=== PATIENT | male | born 1960 | race Caucasian/White ===

== ENCOUNTER 2021-01-20 12:27 | Inpatient (IN) | payer OTHER ==
[2021-01-20 13:49] VITALS: BMI 32.1
[2021-01-20] MEDS ORDERED: MAGNESIUM HYDROX 2400MG/30ML ORAL SUSPENSION 30 ML CUP PO PRN (14:03)
[2021-01-20] MEDS ORDERED: METHADONE HCL 10 MG TABLET (FOR DETOX USE ONLY) PO ONE (14:03)
[2021-01-20] MEDS ORDERED: chlordiazePOXIDE HCL 25 MG CAPSULE PO PRN (14:03)
[2021-01-20] MEDS ORDERED: MAG HYDROX/AL HYDROX/SIMETH 30 ML UNIT-DOSE CUP PO PRN (14:03)
[2021-01-20] MEDS ORDERED: ACETAMINOPHEN 325 MG TABLET (FP) PO PRN (14:03)
[2021-01-20] MEDS ORDERED: MAGNESIUM CITRATE 300 ML BOTTLE PO PRN (14:03)
[2021-01-20] MEDS ORDERED: BISMUTH SUBSALICYLATE 524 MG/30 ML UD PO PRN (14:03)
[2021-01-20] MEDS ORDERED: METHOCARBAMOL 500 MG TABLET PO PRN (14:03)
[2021-01-20] MEDS ORDERED: cloNIDine HCL 0.1 MG TABLET PO PRN (14:03)
[2021-01-20] MEDS ORDERED: ONDANSETRON *ODT* 4 MG TABLET SL PRN (14:03)
[2021-01-20] MEDS ORDERED: IBUPROFEN 400 MG TABLET (FP) PO PRN (14:03)
[2021-01-20] MEDS ORDERED: MENTHOL/PHENOL 1 EACH UD MM PRN (14:03)
[2021-01-20 16:18] LABS: HEMATOCRIT 44.6 % (35.4-49); HEMOGLOBIN 15.2 GM/dL (11.7-16.9); MCH 31.4 pg (25.7-33.7); MEAN CELL VOLUME 92.2 fl (80-96); MEAN PLT VOLUME 8.6 fl (7.5-11.1); PLATELET COUNT 263 K/MM3 (134-434); RBC 4.84 M/mm3 (4.00-5.60); RDW 15.1 % (11.9-15.9); WHITE BLOOD COUNT 7.5 K/mm3 (4.0-10.0)
[2021-01-20 16:53] LABS: ALBUMIN 3.8 g/dl (3.4-5.0); BLOOD UREA NITROGEN 11.8 mg/dL (7-18); CALCIUM 8.7 mg/dL (8.5-10.1)
[2021-01-20 16:57] LABS: CREATININE 0.9 mg/dL (0.55-1.3)
[2021-01-20 16:58] LABS: TOT PROT 7.8 g/dl (6.4-8.2)
[2021-01-20 16:59] LABS: BILIRUBIN,TOTAL 1.2 mg/dL (0.2-1)
[2021-01-20] MEDS: chlordiazePOXIDE HCL 25 MG CAPSULE PO SCH ×3 (18:20→22:38)
[2021-01-20] MEDS: hydrOXYzine PAMOATE 25 MG CAPSULE (FP) PO SCH ×2 (18:30→23:17)
[2021-01-20] MEDS ORDERED: MELATONIN 5 MG TABLETS PO SCH (22:00)
[2021-01-20] MEDS: THIAMINE HCL 100 MG TABLET (FP) PO SCH (22:38)
[2021-01-21] MEDS: chlordiazePOXIDE HCL 25 MG CAPSULE PO SCH ×4 (05:17→22:38)
[2021-01-21] MEDS: hydrOXYzine PAMOATE 25 MG CAPSULE (FP) PO SCH ×5 (05:17→22:39)
[2021-01-21] MEDS ORDERED: METHADONE HCL 5 MG TABLET (FOR DETOX USE ONLY) ONE (08:52)
[2021-01-21] MEDS ORDERED: METHADONE HCL 10 MG TABLET (FOR DETOX USE ONLY) ONE (08:52)
[2021-01-21] MEDS ORDERED: MELATONIN 5 MG TABLETS PO PRN (09:22)
[2021-01-21] MEDS ORDERED: METHADONE (DETOX) 20 MG, METHADONE (DETOX) 5 MG PO ONE (10:00)
[2021-01-21] MEDS: PRENATAL VITAMINS W/ FOLIC ACID TABLET (FP) PO SCH (10:26)
[2021-01-21] MEDS: METOPROLOL TARTRATE 50 MG TABLET (FP) PO SCH (11:54)
[2021-01-21] MEDS: FLUTICASONE PROP 0.05% 16 GM NASAL SPRAY NS SCH ×2 (11:55→22:38)
[2021-01-21] MEDS: THIAMINE HCL 100 MG TABLET (FP) PO SCH (22:38)
[2021-01-22] MEDS: ACETAMINOPHEN 325 MG TABLET (FP) PO PRN (01:13)
[2021-01-22] MEDS: hydrOXYzine PAMOATE 25 MG CAPSULE (FP) PO SCH ×5 (05:13→22:17)
[2021-01-22] MEDS: chlordiazePOXIDE HCL 25 MG CAPSULE PO SCH ×4 (05:13→22:16)
[2021-01-22] MEDS ORDERED: METHADONE HCL 10 MG TABLET (FOR DETOX USE ONLY) PO ONE (10:00)
[2021-01-22] MEDS: PRENATAL VITAMINS W/ FOLIC ACID TABLET (FP) PO SCH (10:11)
[2021-01-22] MEDS: METOPROLOL TARTRATE 50 MG TABLET (FP) PO SCH (10:12)
[2021-01-22] MEDS: FLUTICASONE PROP 0.05% 16 GM NASAL SPRAY NS SCH ×2 (10:13→22:16)
[2021-01-22] MEDS: THIAMINE HCL 100 MG TABLET (FP) PO SCH (22:15)
[2021-01-23] MEDS ORDERED: chlordiazePOXIDE HCL 10 MG CAPSULE PO PRN
[2021-01-23] MEDS: chlordiazePOXIDE HCL 10 MG CAPSULE PO SCH ×4 (05:15→22:04)
[2021-01-23] MEDS: hydrOXYzine PAMOATE 25 MG CAPSULE (FP) PO SCH ×5 (05:16→22:05)
[2021-01-23] MEDS ORDERED: METHADONE HCL 5 MG TABLET (FOR DETOX USE ONLY) ONE (09:31)
[2021-01-23] MEDS ORDERED: METHADONE HCL 10 MG TABLET (FOR DETOX USE ONLY) ONE (09:32)
[2021-01-23] MEDS ORDERED: METHADONE (DETOX) 10 MG, METHADONE (DETOX) 5 MG PO ONE (10:00)
[2021-01-23] MEDS: METOPROLOL TARTRATE 50 MG TABLET (FP) PO SCH (10:41)
[2021-01-23] MEDS: FLUTICASONE PROP 0.05% 16 GM NASAL SPRAY NS SCH ×2 (10:41→22:05)
[2021-01-23] MEDS: PRENATAL VITAMINS W/ FOLIC ACID TABLET (FP) PO SCH (10:41)
[2021-01-23] MEDS ORDERED: COLLOIDAL OATMEAL 1 BAR EACH TP PRN (13:12)
[2021-01-23] MEDS: THIAMINE HCL 100 MG TABLET (FP) PO SCH (22:04)
[2021-01-24] MEDS: chlordiazePOXIDE HCL 10 MG CAPSULE PO SCH ×2 (05:20→17:54)
[2021-01-24] MEDS: hydrOXYzine PAMOATE 25 MG CAPSULE (FP) PO SCH ×5 (05:20→22:50)
[2021-01-24] MEDS ORDERED: METHADONE HCL 10 MG TABLET (FOR DETOX USE ONLY) PO ONE (10:00)
[2021-01-24] MEDS: PRENATAL VITAMINS W/ FOLIC ACID TABLET (FP) PO SCH (10:53)
[2021-01-24] MEDS: FLUTICASONE PROP 0.05% 16 GM NASAL SPRAY NS SCH ×2 (10:53→22:50)
[2021-01-24] MEDS: METOPROLOL TARTRATE 50 MG TABLET (FP) PO SCH (10:53)
[2021-01-24] MEDS: ACETAMINOPHEN 325 MG TABLET (FP) PO PRN (11:36)
[2021-01-24] MEDS: THIAMINE HCL 100 MG TABLET (FP) PO SCH (22:50)
[2021-01-25] MEDS ORDERED: chlordiazePOXIDE HCL 10 MG CAPSULE PO ONE (05:00)
[2021-01-25] MEDS ORDERED: METHADONE HCL 5 MG TABLET (FOR DETOX USE ONLY) PO ONE (06:00)
[2021-01-25] MEDS: hydrOXYzine PAMOATE 25 MG CAPSULE (FP) PO SCH ×2 (06:12→10:19)
[2021-01-25 07:35] VITALS: TEMP 97.7
[2021-01-25 09:42] VITALS: BP 118/69; PULSE 67
[2021-01-25] MEDS: METOPROLOL TARTRATE 50 MG TABLET (FP) PO SCH (10:19)
[2021-01-25] MEDS: PRENATAL VITAMINS W/ FOLIC ACID TABLET (FP) PO SCH (10:19)
[2021-01-25] MEDS: FLUTICASONE PROP 0.05% 16 GM NASAL SPRAY NS SCH (10:20)
== END 2021-01-25 12:39 | disposition home or self-care (01) | DRG 773 ==
LOC: YASAS 12:27 → Y6N 16:17
PROVIDERS: ADMIT Allergy & Immunology; ATTEND Allergy & Immunology
PROC: HZ2ZZZZ Detoxification Services for Substance Abuse Treatment (ICD-10-PCS; principal; 2021-01-20)
DX: F11.23 Opioid dependence with withdrawal (principal); F10.230 Alcohol dependence with withdrawal, uncomplicated; F14.20 Cocaine dependence, uncomplicated; F10.280 Alcohol dependence with alcohol-induced anxiety disorder; F32.9 Major depressive disorder, single episode, unspecified; E78.5 Hyperlipidemia, unspecified; I25.10 Atherosclerotic heart disease of native coronary artery without angina pectoris; I10 Essential (primary) hypertension; Z95.5 Presence of coronary angioplasty implant and graft; B18.2 Chronic viral hepatitis C; M16.12 Unilateral primary osteoarthritis, left hip; Z91.5 Personal history of self-harm
CPT/HCPCS: 36415; 80053; 85027; 86780; 93005; 93010; C9803; Q0162; U0003; U0005

== ENCOUNTER 2021-01-27 09:14 | Inpatient (IN) | payer OTHER ==
[2021-01-27 12:32] VITALS: BMI 32.3
[2021-01-27] MEDS ORDERED: PNEUMOC 13-VAL CONJ-DIP CRM/PF 0.5 ML DISP.SYRIN IM ONE (12:44)
[2021-01-27] MEDS ORDERED: LOPERAMIDE HCL 2 MG CAPSULE PO PRN (13:21)
[2021-01-27] MEDS ORDERED: MAGNESIUM HYDROX 2400MG/30ML ORAL SUSPENSION 30 ML CUP PO PRN (13:21)
[2021-01-27] MEDS ORDERED: P-EPHED 60MG/TRIPROLIDI 2.5MG TABLET PO PRN (13:21)
[2021-01-27] MEDS ORDERED: MAG HYDROX/AL HYDROX/SIMETH 30 ML UNIT-DOSE CUP PO PRN (13:21)
[2021-01-27] MEDS ORDERED: guaiFENesin 200 MG/10 ML 10 ML UNIT-DOSE CUPS PO PRN (13:21)
[2021-01-27] MEDS ORDERED: MAGNESIUM CITRATE 300 ML BOTTLE PO PRN (13:21)
[2021-01-27] MEDS ORDERED: hydrOXYzine PAMOATE 25 MG CAPSULE (FP) PO SCH (14:00)
[2021-01-27] MEDS: METOPROLOL TARTRATE 50 MG TABLET (FP) PO SCH (15:14)
[2021-01-27] MEDS: PRENATAL VITAMINS W/ FOLIC ACID TABLET (FP) PO SCH (15:14)
[2021-01-27 17:34] LABS: ALBUMIN 3.9 g/dl (3.4-5.0); BLOOD UREA NITROGEN 12.7 mg/dL (7-18)
[2021-01-27 17:39] LABS: TOT PROT 7.8 g/dl (6.4-8.2)
[2021-01-27 17:44] LABS: HEMATOCRIT 45.3 % (35.4-49); HEMOGLOBIN 15.2 GM/dL (11.7-16.9); MCH 31.5 pg (25.7-33.7); MCHC 33.6 g/dl (32.0-35.9); MEAN CELL VOLUME 93.9 fl (80-96); MEAN PLT VOLUME 8.9 fl (7.5-11.1); PLATELET COUNT 258 K/MM3 (134-434); RBC 4.83 M/mm3 (4.00-5.60); RDW 14.8 % (11.9-15.9); WHITE BLOOD COUNT 6.2 K/mm3 (4.0-10.0)
[2021-01-27 18:31] LABS: HIV INTERPRETATION NEGATIVE (NEGATIVE)
[2021-01-27] MEDS: THIAMINE HCL 100 MG TABLET (FP) PO SCH (21:30)
[2021-01-27] MEDS ORDERED: MELATONIN 5 MG TABLETS PO SCH (22:00)
[2021-01-28] MEDS: ASPIRIN 81 MG CHEWABLE TABLETS PO SCH (09:59)
[2021-01-28] MEDS: METOPROLOL TARTRATE 50 MG TABLET (FP) PO SCH (09:59)
[2021-01-28] MEDS: PRENATAL VITAMINS W/ FOLIC ACID TABLET (FP) PO SCH (09:59)
[2021-01-28] MEDS: IBUPROFEN 400 MG TABLET (FP) PO PRN ×2 (10:01→21:44)
[2021-01-28] MEDS: hydrOXYzine PAMOATE 25 MG CAPSULE (FP) PO PRN ×3 (10:01→21:44)
[2021-01-28] MEDS: METHOCARBAMOL 500 MG TABLET PO PRN ×3 (10:01→21:44)
[2021-01-28] MEDS ORDERED: COLLOIDAL OATMEAL 1 BAR EACH TP PRN (10:36)
[2021-01-28] MEDS ORDERED: PNEUMOCOCCAL 23 VACCINE 0.5 ML VIAL IM ONE (12:00)
[2021-01-28] MEDS ORDERED: FLU VACCINE (FLULAVAL) PF 60 MCG/0.5 ML SYRINGE 2020-2021 IM ONE (12:00)
[2021-01-28] MEDS ORDERED: ONDANSETRON *ODT* 4 MG TABLET SL PRN (12:53)
[2021-01-28] MEDS: ACETAMINOPHEN 325 MG TABLET (FP) PO PRN (14:10)
[2021-01-28 14:48] LABS: EPI CELLS 13 /uL (0-25.1); HYALINE CASTS 32 /uL (0-3.1); PH,URINE 6.5 (5.0-8.0); URINE APPEARANCE CLOUDY; URINE BACTERIA >9,000 /uL (0-1359); URINE BILIRUBIN 1+ (NEGATIVE); URINE COLOR DK YELLOW; URINE GLUCOSE (UA) NEGATIVE (NEGATIVE); URINE KETONE TRACE (NEGATIVE); URINE LEUK ESTERASE 2+ (NEGATIVE); URINE NITRITE NEGATIVE (NEGATIVE); URINE PROTEIN NEGATIVE (NEGATIVE); URINE RBC 12 /uL (0-23.9); URINE WBC 663 /uL (0-25.8)
[2021-01-28] MEDS: THIAMINE HCL 100 MG TABLET (FP) PO SCH (21:44)
[2021-01-29] MEDS: MELATONIN 5 MG TABLETS PO PRN ×2 (01:55→21:24)
[2021-01-29] MEDS: hydrOXYzine PAMOATE 25 MG CAPSULE (FP) PO PRN ×3 (06:04→21:24)
[2021-01-29] MEDS: ACETAMINOPHEN 325 MG TABLET (FP) PO PRN (06:04)
[2021-01-29] MEDS: METHOCARBAMOL 500 MG TABLET PO PRN ×2 (06:04→21:24)
[2021-01-29] MEDS: PRENATAL VITAMINS W/ FOLIC ACID TABLET (FP) PO SCH (09:53)
[2021-01-29] MEDS: ASPIRIN 81 MG CHEWABLE TABLETS PO SCH (09:53)
[2021-01-29] MEDS: METOPROLOL TARTRATE 50 MG TABLET (FP) PO SCH (09:53)
[2021-01-29] MEDS: THIAMINE HCL 100 MG TABLET (FP) PO SCH (21:24)
[2021-01-29] MEDS: IBUPROFEN 400 MG TABLET (FP) PO PRN (21:25)
[2021-01-30] MEDS: IBUPROFEN 400 MG TABLET (FP) PO PRN (06:19)
[2021-01-30] MEDS: METHOCARBAMOL 500 MG TABLET PO PRN (06:20)
[2021-01-30] MEDS: ASPIRIN 81 MG CHEWABLE TABLETS PO SCH (10:06)
[2021-01-30] MEDS: ACETAMINOPHEN 325 MG TABLET (FP) PO PRN (10:07)
[2021-01-30] MEDS: METOPROLOL TARTRATE 50 MG TABLET (FP) PO SCH (10:07)
[2021-01-30] MEDS: PRENATAL VITAMINS W/ FOLIC ACID TABLET (FP) PO SCH (10:07)
[2021-01-30] MEDS: hydrOXYzine PAMOATE 25 MG CAPSULE (FP) PO PRN (10:07)
[2021-01-30] MEDS: THIAMINE HCL 100 MG TABLET (FP) PO SCH (21:23)
[2021-01-30] MEDS: SUVOREXANT 10 MG TABLET PO PRN (21:23)
[2021-01-31 06:07] LABS: SARS-CoV-2 NAA Not Detected (Not Detected)
[2021-01-31] MEDS: METHOCARBAMOL 500 MG TABLET PO PRN (06:09)
[2021-01-31] MEDS: hydrOXYzine PAMOATE 25 MG CAPSULE (FP) PO PRN ×2 (06:09→09:50)
[2021-01-31] MEDS: IBUPROFEN 400 MG TABLET (FP) PO PRN (06:09)
[2021-01-31] MEDS: PRENATAL VITAMINS W/ FOLIC ACID TABLET (FP) PO SCH (09:50)
[2021-01-31] MEDS: ASPIRIN 81 MG CHEWABLE TABLETS PO SCH (09:50)
[2021-01-31] MEDS: METOPROLOL TARTRATE 50 MG TABLET (FP) PO SCH (09:51)
[2021-01-31] MEDS ORDERED: BUPRENORPHINE/NALOXONE 2 MG/0.5 MG FILM PACKET SL ONE ×2 (12:15→15:00)
[2021-01-31] MEDS: AMOX TR/POT CLAV 875MG/125MG TABLETS (FP) PO SCH (17:40)
[2021-01-31] MEDS: THIAMINE HCL 100 MG TABLET (FP) PO SCH (21:48)
[2021-01-31] MEDS: SUVOREXANT 10 MG TABLET PO PRN (21:48)
[2021-02-01] MEDS: IBUPROFEN 400 MG TABLET (FP) PO PRN (06:40)
[2021-02-01] MEDS: METHOCARBAMOL 500 MG TABLET PO PRN ×2 (06:41→21:21)
[2021-02-01] MEDS: AMOX TR/POT CLAV 875MG/125MG TABLETS (FP) PO SCH ×2 (07:09→17:48)
[2021-02-01] MEDS: PRENATAL VITAMINS W/ FOLIC ACID TABLET (FP) PO SCH (09:37)
[2021-02-01] MEDS: BUPRENORPHINE/NALOXONE 4 MG/1 MG FILM PACKET SL SCH (09:38)
[2021-02-01] MEDS: ASPIRIN 81 MG CHEWABLE TABLETS PO SCH (09:38)
[2021-02-01] MEDS: hydrOXYzine PAMOATE 25 MG CAPSULE (FP) PO PRN ×2 (09:39→21:21)
[2021-02-01] MEDS: METOPROLOL TARTRATE 50 MG TABLET (FP) PO SCH (09:40)
[2021-02-01] MEDS ORDERED: BUPRENORPHINE/NALOXONE 2 MG/0.5 MG FILM PACKET SL SCH (10:00)
[2021-02-01] MEDS: SUVOREXANT 10 MG TABLET PO PRN (21:20)
[2021-02-01] MEDS: THIAMINE HCL 100 MG TABLET (FP) PO SCH (21:20)
[2021-02-02] MEDS: NITROGLYCERIN SUBLINGUAL 1/150 0.4 MG TAB SL PRN ×2 (00:02→00:17)
[2021-02-02] MEDS: IBUPROFEN 400 MG TABLET (FP) PO PRN (07:44)
[2021-02-02] MEDS: METHOCARBAMOL 500 MG TABLET PO PRN ×2 (07:44→21:43)
[2021-02-02] MEDS: AMOX TR/POT CLAV 875MG/125MG TABLETS (FP) PO SCH ×2 (07:44→17:05)
[2021-02-02] MEDS: BUPRENORPHINE/NALOXONE 4 MG/1 MG FILM PACKET SL SCH (10:00)
[2021-02-02] MEDS: hydrOXYzine PAMOATE 25 MG CAPSULE (FP) PO PRN ×2 (10:05→21:43)
[2021-02-02] MEDS: ASPIRIN 81 MG CHEWABLE TABLETS PO SCH (10:05)
[2021-02-02] MEDS: PRENATAL VITAMINS W/ FOLIC ACID TABLET (FP) PO SCH (10:05)
[2021-02-02] MEDS: METOPROLOL TARTRATE 50 MG TABLET (FP) PO SCH ×2 (13:22→21:43)
[2021-02-02] MEDS: THIAMINE HCL 100 MG TABLET (FP) PO SCH (21:43)
[2021-02-02] MEDS ORDERED: PT OWN MED DRAWER 7, Y5N ONE (21:43)
[2021-02-02] MEDS: SUVOREXANT 10 MG TABLET PO PRN (21:44)
[2021-02-03] MEDS: ACETAMINOPHEN 325 MG TABLET (FP) PO PRN (06:02)
[2021-02-03] MEDS: METHOCARBAMOL 500 MG TABLET PO PRN (06:03)
[2021-02-03] MEDS: AMOX TR/POT CLAV 875MG/125MG TABLETS (FP) PO SCH ×2 (07:19→18:08)
[2021-02-03] MEDS ORDERED: PT OWN MED DRAWER 7, Y5N ONE (09:06)
[2021-02-03] MEDS: PRENATAL VITAMINS W/ FOLIC ACID TABLET (FP) PO SCH (09:49)
[2021-02-03] MEDS: BUPRENORPHINE/NALOXONE 4 MG/1 MG FILM PACKET SL SCH (09:49)
[2021-02-03] MEDS: METOPROLOL TARTRATE 50 MG TABLET (FP) PO SCH ×2 (09:49→23:12)
[2021-02-03] MEDS: ASPIRIN 81 MG CHEWABLE TABLETS PO SCH (09:49)
[2021-02-03] MEDS: NITROGLYCERIN SUBLINGUAL 1/150 0.4 MG TAB SL PRN (11:58)
[2021-02-03 12:46] VITALS: TEMP 97.1
[2021-02-03 13:03] VITALS: BP 122/71; PULSE 51
[2021-02-03] MEDS ORDERED: BUPRENORPHINE/NALOXONE 4 MG/1 MG FILM PACKET SL SCH (22:00)
[2021-02-03] MEDS ORDERED: SUVOREXANT 10 MG TABLET PO PRN (22:00)
[2021-02-03] MEDS: THIAMINE HCL 100 MG TABLET (FP) PO SCH (23:13)
== END 2021-02-03 23:52 | disposition short-term general hospital (02) | DRG 772 ==
LOC: YASAS 09:14 → Y5N 12:53
PROVIDERS: ADMIT Allergy & Immunology; ATTEND Allergy & Immunology
PROC: HZ42ZZZ Group Counseling for Substance Abuse Treatment, Cognitive-Behavioral (ICD-10-PCS; principal; 2021-02-02)
DX: F11.20 Opioid dependence, uncomplicated (principal); F10.20 Alcohol dependence, uncomplicated; F14.20 Cocaine dependence, uncomplicated; F10.24 Alcohol dependence with alcohol-induced mood disorder; F10.280 Alcohol dependence with alcohol-induced anxiety disorder; F32.9 Major depressive disorder, single episode, unspecified; E78.5 Hyperlipidemia, unspecified; B18.2 Chronic viral hepatitis C; N39.0 Urinary tract infection, site not specified; M16.12 Unilateral primary osteoarthritis, left hip; I25.10 Atherosclerotic heart disease of native coronary artery without angina pectoris; I10 Essential (primary) hypertension; Z95.5 Presence of coronary angioplasty implant and graft; R00.1 Bradycardia, unspecified; R07.89 Other chest pain; Z96.651 Presence of right artificial knee joint
CPT/HCPCS: 36415; 80053; 81003; 85027; 86780; 87086; 87186; 87389; 90732; 93005; 93010; C9803; G0009; Q0162; Q2036; U0003; U0005

== ENCOUNTER 2021-02-04 14:26 | Inpatient (IN) | payer OTHER ==
[2021-02-04] MEDS ORDERED: P-EPHED 60MG/TRIPROLIDI 2.5MG TABLET PO PRN (15:20)
[2021-02-04] MEDS ORDERED: MAGNESIUM CITRATE 300 ML BOTTLE PO PRN (15:20)
[2021-02-04] MEDS ORDERED: LOPERAMIDE HCL 2 MG CAPSULE PO PRN (15:20)
[2021-02-04] MEDS ORDERED: MAG HYDROX/AL HYDROX/SIMETH 30 ML UNIT-DOSE CUP PO PRN (15:20)
[2021-02-04] MEDS ORDERED: MAGNESIUM HYDROX 2400MG/30ML ORAL SUSPENSION 30 ML CUP PO PRN (15:20)
[2021-02-04] MEDS ORDERED: guaiFENesin 200 MG/10 ML 10 ML UNIT-DOSE CUPS PO PRN (15:20)
[2021-02-04] MEDS ORDERED: ACETAMINOPHEN 325 MG TABLET (FP) PO PRN (15:20)
[2021-02-04] MEDS ORDERED: IBUPROFEN 400 MG TABLET (FP) PO PRN (15:20)
[2021-02-04] MEDS ORDERED: NITROGLYCERIN SUBLINGUAL 1/150 0.4 MG TAB SL PRN (15:23)
[2021-02-04] MEDS ORDERED: LISINOPRIL 5 MG TABLET PO ONE (15:23)
[2021-02-04] MEDS: hydrOXYzine PAMOATE 25 MG CAPSULE (FP) PO SCH ×2 (17:10→23:00)
[2021-02-04] MEDS: THIAMINE HCL 100 MG TABLET (FP) PO SCH (22:07)
[2021-02-04] MEDS: MELATONIN 5 MG TABLETS PO SCH (22:07)
[2021-02-04] MEDS: ATORVASTATIN CA 40 MG TABLET (FP) PO SCH (22:07)
[2021-02-04] MEDS: METHOCARBAMOL 500 MG TABLET PO SCH (22:07)
[2021-02-04] MEDS: AMOX TR/POT CLAV 875MG/125MG TABLETS (FP) PO SCH (22:07)
[2021-02-04] MEDS: BUPRENORPHINE/NALOXONE 4 MG/1 MG FILM PACKET SL SCH (23:01)
[2021-02-05] MEDS: hydrOXYzine PAMOATE 25 MG CAPSULE (FP) PO SCH ×5 (06:31→21:09)
[2021-02-05] MEDS: METHOCARBAMOL 500 MG TABLET PO SCH ×2 (10:17→21:08)
[2021-02-05] MEDS: BUPRENORPHINE/NALOXONE 4 MG/1 MG FILM PACKET SL SCH ×2 (10:17→21:11)
[2021-02-05] MEDS: AMOX TR/POT CLAV 875MG/125MG TABLETS (FP) PO SCH ×2 (10:17→21:09)
[2021-02-05] MEDS: ASPIRIN 81 MG CHEWABLE TABLETS PO SCH (10:17)
[2021-02-05] MEDS: PRENATAL VITAMINS W/ FOLIC ACID TABLET (FP) PO SCH (10:19)
[2021-02-05] MEDS ORDERED: PT OWN MED DRAWER 7, Y5N ONE ×2 (10:19→10:20)
[2021-02-05] MEDS: LISINOPRIL 5 MG TABLET PO SCH (10:20)
[2021-02-05] MEDS: ATORVASTATIN CA 40 MG TABLET (FP) PO SCH (21:09)
[2021-02-05] MEDS: MELATONIN 5 MG TABLETS PO SCH (21:09)
[2021-02-05] MEDS: THIAMINE HCL 100 MG TABLET (FP) PO SCH (21:12)
[2021-02-06] MEDS: hydrOXYzine PAMOATE 25 MG CAPSULE (FP) PO SCH ×5 (06:21→22:03)
[2021-02-06] MEDS: BUPRENORPHINE/NALOXONE 4 MG/1 MG FILM PACKET SL SCH ×2 (09:32→22:01)
[2021-02-06] MEDS: ASPIRIN 81 MG CHEWABLE TABLETS PO SCH (09:33)
[2021-02-06] MEDS: PRENATAL VITAMINS W/ FOLIC ACID TABLET (FP) PO SCH (09:33)
[2021-02-06] MEDS: METHOCARBAMOL 500 MG TABLET PO SCH ×2 (09:33→22:01)
[2021-02-06] MEDS: AMOX TR/POT CLAV 875MG/125MG TABLETS (FP) PO SCH ×2 (09:34→22:00)
[2021-02-06] MEDS: LISINOPRIL 5 MG TABLET PO SCH (09:35)
[2021-02-06] MEDS: ATORVASTATIN CA 40 MG TABLET (FP) PO SCH (22:01)
[2021-02-06] MEDS: MELATONIN 5 MG TABLETS PO SCH (22:01)
[2021-02-06] MEDS: THIAMINE HCL 100 MG TABLET (FP) PO SCH (22:01)
[2021-02-07] MEDS: hydrOXYzine PAMOATE 25 MG CAPSULE (FP) PO SCH ×5 (07:16→21:09)
[2021-02-07] MEDS: LISINOPRIL 5 MG TABLET PO SCH (09:46)
[2021-02-07] MEDS: ASPIRIN 81 MG CHEWABLE TABLETS PO SCH (09:47)
[2021-02-07] MEDS: AMOX TR/POT CLAV 875MG/125MG TABLETS (FP) PO SCH (09:48)
[2021-02-07] MEDS: METHOCARBAMOL 500 MG TABLET PO SCH ×2 (09:48→21:09)
[2021-02-07] MEDS: PRENATAL VITAMINS W/ FOLIC ACID TABLET (FP) PO SCH (09:48)
[2021-02-07] MEDS: BUPRENORPHINE/NALOXONE 8 MG/2 MG FILM PACKET SL SCH (09:54)
[2021-02-07] MEDS: THIAMINE HCL 100 MG TABLET (FP) PO SCH (21:09)
[2021-02-07] MEDS: ATORVASTATIN CA 40 MG TABLET (FP) PO SCH (21:09)
[2021-02-07] MEDS: MELATONIN 5 MG TABLETS PO SCH (21:09)
[2021-02-07] MEDS: BUPRENORPHINE/NALOXONE 4 MG/1 MG FILM PACKET SL SCH (21:09)
[2021-02-08] MEDS: hydrOXYzine PAMOATE 25 MG CAPSULE (FP) PO SCH ×5 (07:52→22:03)
[2021-02-08] MEDS: BUPRENORPHINE/NALOXONE 8 MG/2 MG FILM PACKET SL SCH (09:32)
[2021-02-08] MEDS: PRENATAL VITAMINS W/ FOLIC ACID TABLET (FP) PO SCH (09:32)
[2021-02-08] MEDS: LISINOPRIL 5 MG TABLET PO SCH (09:33)
[2021-02-08] MEDS: METHOCARBAMOL 500 MG TABLET PO SCH ×2 (09:33→22:03)
[2021-02-08] MEDS: ASPIRIN 81 MG CHEWABLE TABLETS PO SCH (09:33)
[2021-02-08] MEDS: MELATONIN 5 MG TABLETS PO SCH (22:03)
[2021-02-08] MEDS: THIAMINE HCL 100 MG TABLET (FP) PO SCH (22:03)
[2021-02-08] MEDS: ATORVASTATIN CA 40 MG TABLET (FP) PO SCH (22:03)
[2021-02-08] MEDS: BUPRENORPHINE/NALOXONE 4 MG/1 MG FILM PACKET SL SCH (22:03)
[2021-02-09] MEDS: hydrOXYzine PAMOATE 25 MG CAPSULE (FP) PO SCH ×5 (07:02→21:25)
[2021-02-09] MEDS: METHOCARBAMOL 500 MG TABLET PO SCH ×2 (09:34→21:25)
[2021-02-09] MEDS: LISINOPRIL 5 MG TABLET PO SCH (09:34)
[2021-02-09] MEDS: ASPIRIN 81 MG CHEWABLE TABLETS PO SCH (09:34)
[2021-02-09] MEDS: PRENATAL VITAMINS W/ FOLIC ACID TABLET (FP) PO SCH (09:34)
[2021-02-09] MEDS: BUPRENORPHINE/NALOXONE 8 MG/2 MG FILM PACKET SL SCH (09:36)
[2021-02-09] MEDS: MELATONIN 5 MG TABLETS PO SCH (21:25)
[2021-02-09] MEDS: ATORVASTATIN CA 40 MG TABLET (FP) PO SCH (21:25)
[2021-02-09] MEDS: BUPRENORPHINE/NALOXONE 4 MG/1 MG FILM PACKET SL SCH (21:26)
[2021-02-09] MEDS: THIAMINE HCL 100 MG TABLET (FP) PO SCH (21:27)
[2021-02-10] MEDS: hydrOXYzine PAMOATE 25 MG CAPSULE (FP) PO SCH ×5 (06:18→22:04)
[2021-02-10 07:05] VITALS: TEMP 97.6
[2021-02-10] MEDS: PRENATAL VITAMINS W/ FOLIC ACID TABLET (FP) PO SCH (09:37)
[2021-02-10] MEDS: BUPRENORPHINE/NALOXONE 8 MG/2 MG FILM PACKET SL SCH ×2 (09:38→22:04)
[2021-02-10] MEDS: ASPIRIN 81 MG CHEWABLE TABLETS PO SCH (09:38)
[2021-02-10] MEDS: LISINOPRIL 5 MG TABLET PO SCH (09:40)
[2021-02-10] MEDS: METHOCARBAMOL 500 MG TABLET PO SCH ×2 (10:00→22:04)
[2021-02-10] MEDS: FLUTICASONE PROP 0.05% 16 GM NASAL SPRAY NS SCH (13:51)
[2021-02-10] MEDS: ATORVASTATIN CA 40 MG TABLET (FP) PO SCH (22:04)
[2021-02-10] MEDS: MELATONIN 5 MG TABLETS PO SCH (22:04)
[2021-02-10] MEDS: THIAMINE HCL 100 MG TABLET (FP) PO SCH (22:04)
[2021-02-11] MEDS: hydrOXYzine PAMOATE 25 MG CAPSULE (FP) PO SCH ×2 (07:04→09:35)
[2021-02-11] MEDS: ASPIRIN 81 MG CHEWABLE TABLETS PO SCH (09:33)
[2021-02-11] MEDS: BUPRENORPHINE/NALOXONE 8 MG/2 MG FILM PACKET SL SCH (09:33)
[2021-02-11] MEDS: METHOCARBAMOL 500 MG TABLET PO SCH (09:34)
[2021-02-11] MEDS: PRENATAL VITAMINS W/ FOLIC ACID TABLET (FP) PO SCH (09:34)
[2021-02-11] MEDS: LISINOPRIL 5 MG TABLET PO SCH (09:34)
[2021-02-11] MEDS: FLUTICASONE PROP 0.05% 16 GM NASAL SPRAY NS SCH (09:35)
[2021-02-11 12:05] VITALS: BP 132/73; PULSE 86
== END 2021-02-11 10:30 | disposition home or self-care (01) | DRG 772 ==
LOC: YASAS 14:26 → Y5N 15:11
PROVIDERS: ADMIT Allergy & Immunology; ATTEND Allergy & Immunology
PROC: HZ42ZZZ Group Counseling for Substance Abuse Treatment, Cognitive-Behavioral (ICD-10-PCS; principal; 2021-02-04)
DX: F10.20 Alcohol dependence, uncomplicated (principal); F11.20 Opioid dependence, uncomplicated; F14.20 Cocaine dependence, uncomplicated; E78.5 Hyperlipidemia, unspecified; I25.10 Atherosclerotic heart disease of native coronary artery without angina pectoris; I11.9 Hypertensive heart disease without heart failure; Z95.5 Presence of coronary angioplasty implant and graft; N39.0 Urinary tract infection, site not specified; M19.90 Unspecified osteoarthritis, unspecified site; R07.89 Other chest pain; Z96.641 Presence of right artificial hip joint; Z99.89 Dependence on other enabling machines and devices; Z51.81 Encounter for therapeutic drug level monitoring
CPT/HCPCS: 36415; 71045-TC-FY; 80053; 83735; 84100; 84484; 85025; 85610; 93306-TC; 99285-25; C9803; G0378; U0003; U0005

== ENCOUNTER 2023-05-08 03:21 | Emergency (ER) | payer OTHER ==
[2023-05-08 03:29] VITALS: BMI 27.7
[2023-05-08] MEDS ORDERED: ACETAMINOPHEN 1000 MG/100 ML BAG IVPB ONE (03:49)
[2023-05-08] MEDS ORDERED: ACETAMINOPHEN INJECTION 100 ML IVPB ONE (03:58)
[2023-05-08 05:18] LABS: INR 1.03 (0.83-1.09); POTASSIUM 4.3 mmol/L (3.5-5.1)
[2023-05-08 05:20] LABS: ACTIVATED PTT 27.8 SECONDS (25.2-36.5); ALBUMIN 3.3 g/dl (3.4-5.0)
[2023-05-08 05:21] LABS: BLOOD UREA NITROGEN 19.4 mg/dL (7-18)
[2023-05-08 05:25] LABS: TOT PROT 6.5 g/dl (6.4-8.2)
[2023-05-08 06:06] LABS: RBC 4.24 M/mm3 (4.00-5.60); WHITE BLOOD COUNT 8.5 K/mm3 (4.0-10.0)
[2023-05-08 06:07] LABS: BASO % 0.9 % (0-2.0); EOS % 2.4 % (0-4.5); HEMOGLOBIN 13.2 GM/dL (11.7-16.9); LYMPH % 28.3 % (8-40); MCH 31.2 pg (25.7-33.7); MCHC 33.9 g/dl (32.0-35.9); MEAN PLT VOLUME 9.4 fl (7.5-11.1); NEUT % 63.4 % (42.8-82.8); PLATELET COUNT 243 10^3/uL (134-434); RDW 13.3 % (11.9-15.9)
[2023-05-08] MEDS ORDERED: methylPREDNISolone NA SUCC 125 MG/2 ML VIAL IVPUSH ONE (06:47)
[2023-05-08] MEDS ORDERED: methylPREDNISolone NA SUCC 125 MG/2 ML VIAL ONE (06:48)
[2023-05-08 07:37] VITALS: RESP 18; TEMP 97.4
[2023-05-08 09:04] VITALS: BP 106/62; PULSE 50
== END 2023-05-08 09:41 | disposition home or self-care (01) ==
LOC: JER 03:21
PROC: 3E033NZ Introduction of Analgesics, Hypnotics, Sedatives into Peripheral Vein, Percutaneous Approach (ICD-10-PCS; principal; 2023-05-08)
PROC: 3E033GC Introduction of Other Therapeutic Substance into Peripheral Vein, Percutaneous Approach (ICD-10-PCS; 2023-05-08)
PROC: 3E033GC Introduction of Other Therapeutic Substance into Peripheral Vein, Percutaneous Approach (ICD-10-PCS; 2023-05-08)
DX: R10.33 Periumbilical pain (principal)
CPT/HCPCS: 36415; 74177-TC; 80053; 83605; 83690; 85025; 85610; 85730; 86850; 86900; 86901; Q9967

== ENCOUNTER 2023-05-11 15:47 | Observation (INO) | payer OTHER ==
[2023-05-11] MEDS ORDERED: SODIUM CHLORIDE 0.9% 500 ML INFUS.BAG IV ONE (17:41)
[2023-05-11] MEDS ORDERED: ACETAMINOPHEN 1000 MG/100 ML BAG IVPB ONE (17:41)
[2023-05-11] MEDS ORDERED: ACETAMINOPHEN INJECTION 100 ML IVPB ONE (17:45)
[2023-05-11 18:40] LABS: BASO % 1.1 % (0-2.0); EOS % 2.2 % (0-4.5); HEMATOCRIT 38.3 % (35.4-49); LYMPH % 28.7 % (8-40); MCH 30.8 pg (25.7-33.7); MCHC 33.9 g/dl (32.0-35.9); MEAN CELL VOLUME 90.9 fl (80-96); MEAN PLT VOLUME 8.6 fl (7.5-11.1); MONO % 5.4 % (3.8-10.2); NEUT % 62.6 % (42.8-82.8); PLATELET COUNT 252 10^3/uL (134-434); RBC 4.22 M/mm3 (4.00-5.60); RDW 13.4 % (11.9-15.9); WHITE BLOOD COUNT 8.3 K/mm3 (4.0-10.0)
[2023-05-11 18:42] LABS: POTASSIUM 4.2 mmol/L (3.5-5.1)
[2023-05-11 18:45] LABS: ALBUMIN 3.7 g/dl (3.4-5.0); BLOOD UREA NITROGEN 22.7 mg/dL (7-18)
[2023-05-11 18:48] LABS: CREATININE 1.9 mg/dL (0.55-1.3)
[2023-05-11 18:49] LABS: TOT PROT 6.5 g/dl (6.4-8.2)
[2023-05-11 19:04] LABS: INR 1.05 (0.83-1.09); PROTHROMBIN TIME (PATIENT) 12.2 SEC (9.7-13.0)
[2023-05-11 19:07] LABS: ACTIVATED PTT 25.8 SECONDS (25.2-36.5)
[2023-05-12] MEDS ORDERED: ACETAMINOPHEN INJECTION 100 ML IVPB ONE ×2 (00:58→18:40)
[2023-05-12] MEDS: ACETAMINOPHEN 1000 MG/100 ML BAG IVPB PRN ×2 (01:03→18:50)
[2023-05-12] MEDS: SODIUM CHLORIDE 1,000 ML IV SCH ×2 (01:03→22:58)
[2023-05-12] MEDS ORDERED: PIPERACILLIN/TAZOB 3.375 GM 3.375 GM/50 ML BAG IVPB ONE ×2 (02:06→10:21)
[2023-05-12] MEDS: PIPERACILLIN/TAZOB 3.375 GM 3.375 GM in DEXTROSE 5%-WATER - 50 ML IVPB SCH ×2 (02:36→10:48)
[2023-05-12] MEDS ORDERED: MELATONIN 5 MG TABLETS ONE (03:08)
[2023-05-12] MEDS: MELATONIN 5 MG TABLETS PO SCH ×2 (03:17→22:58)
[2023-05-12] MEDS ORDERED: HEPARIN NA (PORCINE) 5,000 UNITS/ML 1ML VIAL ONE (05:35)
[2023-05-12] MEDS ORDERED: HEPARIN NA (PORCINE) 5,000 UNITS/ML 1ML VIAL SQ SCH (06:00)
[2023-05-12 08:50] LABS: HEMATOCRIT 35.2 % (35.4-49); HEMOGLOBIN 12.3 GM/dL (11.7-16.9); MCH 31.8 pg (25.7-33.7); MEAN CELL VOLUME 90.8 fl (80-96); MEAN PLT VOLUME 8.3 fl (7.5-11.1); PLATELET COUNT 214 10^3/uL (134-434); RBC 3.88 M/mm3 (4.00-5.60); RDW 13.4 % (11.9-15.9); WHITE BLOOD COUNT 6.7 K/mm3 (4.0-10.0)
[2023-05-12 10:02] LABS: CHLORIDE 108 mmol/L (98-107); SODIUM 141 mmol/L (136-145)
[2023-05-12 10:08] LABS: ANION GAP 6 MMOL/L (8-16); BLOOD UREA NITROGEN 26.7 mg/dL (7-18); CO2 28 mmol/L (21-32)
[2023-05-12 10:09] LABS: ALBUMIN 3.3 g/dl (3.4-5.0); CALCIUM 8.6 mg/dL (8.5-10.1); GLUCOSE,RANDOM 86 mg/dL (74-106); MAGNESIUM 1.9 mg/dL (1.8-2.4)
[2023-05-12 10:11] LABS: SGPT/ALT 51 U/L (13-61)
[2023-05-12 10:12] LABS: BILIRUBIN,TOTAL 0.9 mg/dL (0.2-1); CREATININE 1.8 mg/dL (0.55-1.3); PHOSPHOROUS 4.9 mg/dL (2.5-4.9); SGOT/AST 40 U/L (15-37); TOT PROT 5.8 g/dl (6.4-8.2)
[2023-05-12 10:13] LABS: ALK PHOS 69 U/L (45-117)
[2023-05-12] MEDS ORDERED: ASPIRIN COATED 81 MG TABLET.EC ONE (10:20)
[2023-05-12] MEDS: ASPIRIN COATED 81 MG TABLET.EC PO SCH (10:47)
[2023-05-12 13:31] LABS: HIV INTERPRETATION NEGATIVE (NEGATIVE)
[2023-05-12] MEDS ORDERED: PIPERACILLIN/TAZOB 2.25 GM 2.25 GM/50 ML BAG IVPB ONE (18:05)
[2023-05-12] MEDS: PIPERACILLIN/TAZOB 2.25 GM 2.25 GM in DEXTROSE 5%-WATER - 50 ML IVPB SCH (18:37)
[2023-05-12 21:28] VITALS: BMI 31.0
[2023-05-12] MEDS ORDERED: ATORVASTATIN CA 80 MG TABLET (FP) PO SCH (22:00)
[2023-05-13] MEDS: SODIUM CHLORIDE 1,000 ML IV SCH ×2 (01:07→09:56)
[2023-05-13] MEDS: PIPERACILLIN/TAZOB 2.25 GM 2.25 GM in DEXTROSE 5%-WATER - 50 ML IVPB SCH ×2 (01:07→09:59)
[2023-05-13] MEDS ORDERED: PIPERACILLIN/TAZOB 3.375 GM 3.375 GM in DEXTROSE 5%-WATER - 50 ML IVPB SCH (02:00)
[2023-05-13 09:23] LABS: EOS % 4.3 % (0-4.5); HEMATOCRIT 34.6 % (35.4-49); HEMOGLOBIN 11.9 GM/dL (11.7-16.9); LYMPH % 33.8 % (8-40); MCH 31.6 pg (25.7-33.7); MCHC 34.5 g/dl (32.0-35.9); MEAN CELL VOLUME 91.6 fl (80-96); MEAN PLT VOLUME 9.2 fl (7.5-11.1); MONO % 5.3 % (3.8-10.2); NEUT % 55.6 % (42.8-82.8); PLATELET COUNT 215 10^3/uL (134-434); RBC 3.78 M/mm3 (4.00-5.60); RDW 13.3 % (11.9-15.9)
[2023-05-13 09:42] LABS: POTASSIUM 4.5 mmol/L (3.5-5.1)
[2023-05-13 09:49] LABS: BLOOD UREA NITROGEN 19.1 mg/dL (7-18); CALCIUM 8.6 mg/dL (8.5-10.1)
[2023-05-13] MEDS ORDERED: hydrOXYzine PAMOATE 25 MG CAPSULE (FP) PO PRN (09:49)
[2023-05-13] MEDS ORDERED: ACETAMINOPHEN 325 MG TABLET (FP) PO PRN (09:49)
[2023-05-13 09:50] LABS: ALBUMIN 3.1 g/dl (3.4-5.0)
[2023-05-13 09:55] LABS: CREATININE 1.2 mg/dL (0.55-1.3); TOT PROT 5.8 g/dl (6.4-8.2)
[2023-05-13 09:58] LABS: ERYTHROCYTE SEDIMENTATION RATE 10 mm/hr (0-20)
[2023-05-13] MEDS ORDERED: PANTOPRAZOLE 40 MG TABLET PO SCH (10:00)
[2023-05-13] MEDS: ASPIRIN COATED 81 MG TABLET.EC PO SCH (10:50)
[2023-05-13] MEDS ORDERED: BENZOCAINE/MENTHOL (CHLORASEPTIC ) LOZENGE MM PRN (12:40)
[2023-05-13] MEDS ORDERED: DICYCLOMINE HCL 10 MG CAPSULE PO PRN (12:40)
[2023-05-13] MEDS ORDERED: POLYETHYLENE GLYCOL (HEALTHYLAX) 3350 17 GM PACKET PO PRN (12:40)
[2023-05-13] MEDS ORDERED: ONDANSETRON *ODT* 4 MG TABLET SL PRN (12:40)
[2023-05-13] MEDS ORDERED: guaiFENesin 600 MG TABLET.ER (FP) PO PRN (12:40)
[2023-05-13] MEDS ORDERED: MAG HYDROX/AL HYDROX/SIMETH 30 ML UNIT-DOSE CUP PO PRN (12:40)
[2023-05-13] MEDS ORDERED: MAGNESIUM HYDROX 2400MG/30ML ORAL SUSPENSION 30 ML CUP PO PRN (12:40)
[2023-05-13] MEDS ORDERED: NICOTINE POLACRILEX 4 MG GUM BUC PRN (12:40)
[2023-05-13] MEDS ORDERED: NALOXONE HCL 0.4 MG/ML VIAL IM PRN (12:40)
[2023-05-13] MEDS ORDERED: BISMUTH SUBSALICYLATE 524 MG/30 ML PO PRN (12:40)
[2023-05-13] MEDS ORDERED: BACLOFEN 10 MG TABLET (FP) PO PRN (12:40)
[2023-05-13] MEDS ORDERED: NALOXONE HCL (KLOXXADO) 8 MG SPRAY NS PRN (12:40)
[2023-05-13] MEDS ORDERED: BENZONATATE 200 MG CAPSULE PO PRN (12:40)
[2023-05-13] MEDS ORDERED: LOPERAMIDE HCL 2 MG CAPSULE PO PRN (12:40)
[2023-05-13] MEDS ORDERED: CEFTRIAXONE 1 GM in DEXTROSE 5%-WATER - 50 ML IVPB SCH (12:45)
[2023-05-13] MEDS ORDERED: LORazepam 2 MG TABLET PO PRN (14:51)
[2023-05-13] MEDS ORDERED: LORazepam 1 MG TABLET PO PRN (15:16)
[2023-05-13 16:01] LABS: COCAINE, UR NEGATIVE (NEGATIVE); OPIATES, URI NEGATIVE (NEGATIVE); PHENCYCLIDINE,URINE NEGATIVE (NEGATIVE); URINE AMPHETAMINES NEGATIVE (NEGATIVE); URINE BARBITURATES NEGATIVE (NEGATIVE)
[2023-05-13 16:02] LABS: METHADONE, UR NEGATIVE (NEGATIVE); URINE BENZODIAZEPINES POSITIVE (NEGATIVE)
[2023-05-13] MEDS ORDERED: cloNIDine HCL 0.1 MG TABLET PO PRN (17:20)
[2023-05-13 18:23] VITALS: BP 148/87; PULSE 46; RESP 20; TEMP 98
[2023-05-13] MEDS ORDERED: THIAMINE HCL 100 MG TABLET (FP) PO SCH ×2 (22:00)
[2023-05-13] MEDS ORDERED: MELATONIN 5 MG TABLETS PO SCH (22:00)
[2023-05-14] MEDS ORDERED: PRENATAL VITAMINS W/ FOLIC ACID TABLET (FP) PO SCH (10:00)
== END 2023-05-13 21:20 | disposition left against medical advice (07) ==
LOC: JER 15:47 → JERBED 21:01 → J8W 05-12 20:28
PROVIDERS: ADMIT Internal Medicine; ATTEND Nurse Practitioner Acute Care
PROC: 3E033NZ Introduction of Analgesics, Hypnotics, Sedatives into Peripheral Vein, Percutaneous Approach (ICD-10-PCS; principal; 2023-05-11)
PROC: 3E03329 Introduction of Other Anti-infective into Peripheral Vein, Percutaneous Approach (ICD-10-PCS; 2023-05-11)
PROC: 3E0337Z Introduction of Electrolytic and Water Balance Substance into Peripheral Vein, Percutaneous Approach (ICD-10-PCS; 2023-05-11)
DX: K42.9 Umbilical hernia without obstruction or gangrene (principal); I25.10 Atherosclerotic heart disease of native coronary artery without angina pectoris; I11.9 Hypertensive heart disease without heart failure; Z95.5 Presence of coronary angioplasty implant and graft; F19.10 Other psychoactive substance abuse, uncomplicated; M19.90 Unspecified osteoarthritis, unspecified site; Z96.642 Presence of left artificial hip joint; Z86.19 Personal history of other infectious and parasitic diseases; R56.9 Unspecified convulsions; Z95.828 Presence of other vascular implants and grafts; F10.239 Alcohol dependence with withdrawal, unspecified
CPT/HCPCS: 26055; 36415; 71045-TC-FY; 74176-TC; 80053; 80307; 83605; 83690; 83735; 84100; 85025; 85027; 85610; 85651; 85730; 86140; 86704; 86709; 86803; 86850; 86900; 86901; 87340; 87389; 87517; 87522; 93005; 93010; 96361; 96365; 96366; 96367; 96375; 99285-25; G0378; J0475

== ENCOUNTER 2025-04-04 17:39 | Inpatient (IN) | payer OTHER ==
[2025-04-04 18:07] VITALS: BMI 25.2
[2025-04-04] MEDS ORDERED: NALOXONE (NARCAN) HCL 4 MG/0.1 ML SPRAY NS PRN (19:00)
[2025-04-04] MEDS ORDERED: BISMUTH SUBSALICYLATE 524 MG/30 ML PO PRN (19:00)
[2025-04-04] MEDS ORDERED: BENZOCAINE/MENTHOL (CHLORASEPTIC ) LOZENGE MM PRN (19:00)
[2025-04-04] MEDS ORDERED: POLYETHYLENE GLYCOL (HEALTHYLAX) 3350 17 GM PACKET PO PRN (19:00)
[2025-04-04] MEDS ORDERED: MAGNESIUM HYDROX 2400MG/30ML ORAL SUSPENSION 30 ML CUP PO PRN (19:00)
[2025-04-04] MEDS ORDERED: BENZONATATE 200 MG CAPSULE PO PRN (19:00)
[2025-04-04] MEDS ORDERED: MAG HYDROX/AL HYDROX/SIMETH 30 ML UNIT-DOSE CUP PO PRN (19:00)
[2025-04-04] MEDS ORDERED: IBUPROFEN 400 MG TABLET (FP) PO PRN (19:00)
[2025-04-04] MEDS ORDERED: LOPERAMIDE HCL 2 MG CAPSULE PO PRN (19:00)
[2025-04-04] MEDS ORDERED: guaiFENesin 600 MG TABLET.ER (FP) PO PRN (22:00)
[2025-04-04] MEDS ORDERED: MELATONIN 5 MG TABLETS ONE (23:53)
[2025-04-04] MEDS: MELATONIN 5 MG TABLETS PO SCH (23:55)
[2025-04-04] MEDS: THIAMINE 100 MG TABLET PO SCH (23:55)
[2025-04-04] MEDS: P-EPHED 60MG/TRIPROLIDI 2.5MG TABLET PO PRN (23:56)
[2025-04-05] MEDS: ASPIRIN 81 MG CHEWABLE TABLETS PO SCH (10:17)
[2025-04-05] MEDS: LISINOPRIL 10 MG TABLET PO SCH (10:17)
[2025-04-05] MEDS: PRENATAL VITAMINS W/ FOLIC ACID TABLET (FP) PO SCH (10:17)
[2025-04-05 12:46] LABS: MCHC 32.9 g/dl (32.3-36.5); MEAN CELL VOLUME 93.6 fl (79.0-92.2); MEAN PLT VOLUME 10.2 fl (9.4-12.4); RDW 12.9 % (12.2-16.4)
[2025-04-05 13:03] LABS: CO2 31.0 mmol/L (21-32); GLUCOSE,RANDOM 134.0 mg/dL (74-106)
[2025-04-05 13:06] LABS: CREATININE 0.8 mg/dL (0.55-1.3); SGOT/AST 24.0 U/L (15-37); SGPT/ALT 21.0 U/L (13-61)
[2025-04-05 13:07] LABS: TOT PROT 6.2 g/dl (6.4-8.2)
[2025-04-05 13:09] LABS: ALK PHOS 69.0 U/L (45-117)
[2025-04-05] MEDS: FLUTICASONE PROP 0.05% 16 GM NASAL SPRAY NS SCH (14:07)
[2025-04-05] MEDS: ONDANSETRON *ODT* 4 MG TABLET SL PRN (14:07)
[2025-04-05] MEDS: MELATONIN 5 MG TABLETS PO SCH (22:14)
[2025-04-05] MEDS: ATORVASTATIN CA 40 MG TABLET (FP) PO SCH (22:14)
[2025-04-05] MEDS: DICYCLOMINE HCL 10 MG CAPSULE PO PRN (23:16)
[2025-04-05] MEDS: IBUPROFEN 600 MG TABLET (FP) PO PRN (23:16)
[2025-04-06] MEDS: METHOCARBAMOL 500 MG TABLET PO PRN (03:22)
[2025-04-09] MEDS: ACAMPROSATE CALCIUM 333 MG TABLET.DR PO SCH (13:47)
[2025-04-09] MEDS: ACETAMINOPHEN 325 MG TABLET (FP) PO PRN (19:55)
[2025-04-09 21:29] VITALS: RESP 16
[2025-04-10 08:57] VITALS: TEMP 98
[2025-04-10 13:03] VITALS: BP 105/62; PULSE 65
== END 2025-04-10 14:48 | disposition other institution (70) | DRG 773 ==
LOC: YASAS 17:39 → Y6N 23:32
PROVIDERS: ADMIT Neuromusculoskeletal Medicine & OMM; ATTEND Family Medicine Addiction Medicine
PROC: HZ2ZZZZ Detoxification Services for Substance Abuse Treatment (ICD-10-PCS; principal; 2025-04-04)
DX: F11.23 Opioid dependence with withdrawal (principal); F10.230 Alcohol dependence with withdrawal, uncomplicated; F14.20 Cocaine dependence, uncomplicated; F19.282 Other psychoactive substance dependence with psychoactive substance-induced sleep disorder; I25.10 Atherosclerotic heart disease of native coronary artery without angina pectoris; I10 Essential (primary) hypertension; Z95.5 Presence of coronary angioplasty implant and graft; J45.909 Unspecified asthma, uncomplicated; E78.5 Hyperlipidemia, unspecified; R10.84 Generalized abdominal pain
CPT/HCPCS: 36415; 74177-TC; 80053; 80305; 80307; 82550; 83605; 84484; 85025; 85027; 85610; 85730; 86780; 86803; 86850; 86900; 86901; 87389; 87522; 87811; 93005; 93010; 99285-25; Q0162; Q9967

== ENCOUNTER 2025-04-20 18:44 | Inpatient (IN) | payer OTHER ==
[2025-04-20 19:01] VITALS: BMI 29.0
[2025-04-20] MEDS ORDERED: NICOTINE POLACRILEX 2 MG GUM BUC PRN (19:02)
[2025-04-20] MEDS ORDERED: POLYETHYLENE GLYCOL (HEALTHYLAX) 3350 17 GM PACKET PO PRN (19:02)
[2025-04-20] MEDS ORDERED: NALOXONE HCL 0.4 MG/ML VIAL IVPUSH PRN (19:02)
[2025-04-20] MEDS ORDERED: guaiFENesin 600 MG TABLET.ER (FP) PO PRN (19:02)
[2025-04-20] MEDS ORDERED: MAG HYDROX/AL HYDROX/SIMETH 30 ML UNIT-DOSE CUP PO PRN (19:02)
[2025-04-20] MEDS ORDERED: NALOXONE (NARCAN) HCL 4 MG/0.1 ML SPRAY NS PRN (19:02)
[2025-04-20] MEDS ORDERED: NICOTINE POLACRILEX 2 MG LOZENGE BC PRN (19:02)
[2025-04-20] MEDS ORDERED: BENZOCAINE/MENTHOL (CHLORASEPTIC ) LOZENGE MM PRN (19:02)
[2025-04-20] MEDS ORDERED: LOPERAMIDE HCL 2 MG CAPSULE PO PRN (19:02)
[2025-04-20] MEDS ORDERED: BENZONATATE 200 MG CAPSULE PO PRN (19:02)
[2025-04-20] MEDS ORDERED: MELATONIN 5 MG TABLETS PO SCH (22:00)
[2025-04-20] MEDS: MELATONIN 5 MG TABLETS PO SCH (22:06)
[2025-04-20] MEDS: THIAMINE 100 MG TABLET PO SCH (22:06)
[2025-04-20] MEDS: ATORVASTATIN CA 80 MG TABLET (FP) PO SCH (22:06)
[2025-04-21] MEDS: ASPIRIN COATED 81 MG TABLET.EC PO SCH (09:18)
[2025-04-21] MEDS: PRENATAL VITAMINS W/ FOLIC ACID TABLET (FP) PO SCH (09:18)
[2025-04-21] MEDS: LISINOPRIL 10 MG TABLET PO SCH (09:18)
[2025-04-21] MEDS: FLUTICASONE PROP 0.05% 16 GM NASAL SPRAY NS PRN (09:19)
[2025-04-21] MEDS: ACETAMINOPHEN 325 MG TABLET (FP) PO PRN (14:12)
[2025-04-22] MEDS: hydrOXYzine PAMOATE 25 MG CAPSULE (FP) PO ONE (18:42)
[2025-04-22] MEDS: METHOCARBAMOL 500 MG TABLET PO PRN (18:42)
[2025-04-23] MEDS ORDERED: ATORVASTATIN CA 40 MG TABLET (FP) ONE (21:31)
[2025-04-24] MEDS: AMOX TR/POT CLAV 500MG/125MG TABLETS (FP) PO SCH (15:19)
[2025-04-24] MEDS: NITROFURANTOIN MONOHYD/M-CRYST 100 MG CAPSULE PO SCH (17:28)
[2025-04-24] MEDS ORDERED: ATORVASTATIN CA 40 MG TABLET (FP) ONE (20:08)
[2025-04-25] MEDS: ACETAMINOPHEN 325 MG TABLET (FP) PO PRN (10:51)
[2025-04-25] MEDS: LIDOCAINE 5% TOPICAL PATCH TP SCH (10:53)
[2025-04-25] MEDS ORDERED: ATORVASTATIN CA 40 MG TABLET (FP) ONE (20:19)
[2025-04-25] MEDS: MIRTAZAPINE 15 MG TABLET (FP) PO SCH (21:16)
[2025-04-25] MEDS: LIDOCAINE PATCH REMOVAL MC SCH (21:17)
[2025-04-25] MEDS ORDERED: SUVOREXANT 10 MG TABLET PO ONE (22:00)
[2025-04-26] MEDS ORDERED: ATORVASTATIN CA 40 MG TABLET (FP) ONE (20:36)
[2025-04-30] MEDS: LIDOCAINE HCL 5% TOP OINTMENT 50 GM TUBE TP ONE (12:08)
[2025-04-30] MEDS ORDERED: ATORVASTATIN CA 40 MG TABLET (FP) ONE (20:54)
[2025-05-01] MEDS ORDERED: ATORVASTATIN CA 40 MG TABLET (FP) ONE (20:27)
[2025-05-02] MEDS ORDERED: BENZONATATE 200 MG CAPSULE PO PRN (10:25)
[2025-05-02] MEDS ORDERED: guaiFENesin 600 MG TABLET.ER (FP) PO PRN (10:25)
[2025-05-02] MEDS ORDERED: BENZOCAINE 20 % GEL TUBE MM PRN (10:31)
[2025-05-02] MEDS ORDERED: hydrOXYzine PAMOATE 25 MG CAPSULE (FP) PO PRN (14:00)
[2025-05-02] MEDS: OXYMETAZOLINE 0.05% NASAL SOLUTION 15 ML BOTTLE NS PRN (14:30)
[2025-05-02] MEDS ORDERED: ATORVASTATIN CA 40 MG TABLET (FP) ONE (21:03)
[2025-05-02] MEDS: MIRTAZAPINE 15 MG TABLET (FP) PO SCH (21:03)
[2025-05-02] MEDS: SUVOREXANT 10 MG TABLET PO PRN (21:03)
[2025-05-03] MEDS: MAGNESIUM HYDROX 2400MG/30ML ORAL SUSPENSION 30 ML CUP PO PRN (10:36)
[2025-05-03 17:04] LABS: MCHC 32.4 g/dl (32.3-36.5); MEAN CELL VOLUME 94.2 fl (79.0-92.2); MEAN PLT VOLUME 10.2 fl (9.4-12.4); RDW 12.3 % (12.2-16.4)
[2025-05-03] MEDS ORDERED: ATORVASTATIN CA 40 MG TABLET (FP) ONE (20:58)
[2025-05-03 23:31] LABS: GLUCOSE,RANDOM 125.0 mg/dL (74-106)
[2025-05-03 23:32] LABS: TOT PROT 7.4 g/dl (6.4-8.2)
[2025-05-03 23:33] LABS: CO2 27.0 mmol/L (21-32)
[2025-05-03 23:34] LABS: ALK PHOS 84.0 U/L (40-150)
[2025-05-03 23:37] LABS: CREATININE 0.99 mg/dL (0.55-1.3); SGOT/AST 22.0 U/L (5-34); SGPT/ALT 20.0 U/L (0-55)
[2025-05-04] MEDS ORDERED: ATORVASTATIN CA 40 MG TABLET (FP) ONE (20:15)
[2025-05-04] MEDS: SUVOREXANT 10 MG TABLET PO SCH (21:08)
[2025-05-06] MEDS ORDERED: ATORVASTATIN CA 40 MG TABLET (FP) ONE (20:16)
[2025-05-07] MEDS: LISINOPRIL 10 MG TABLET PO SCH (10:26)
[2025-05-07] MEDS ORDERED: ATORVASTATIN CA 40 MG TABLET (FP) ONE (20:25)
[2025-05-08] MEDS ORDERED: ATORVASTATIN CA 40 MG TABLET (FP) ONE (20:34)
[2025-05-09] MEDS ORDERED: ATORVASTATIN CA 40 MG TABLET (FP) ONE (20:44)
[2025-05-10] MEDS: SUVOREXANT 10 MG TABLET PO PRN (21:20)
[2025-05-11 06:09] VITALS: RESP 16
[2025-05-11] MEDS ORDERED: ATORVASTATIN CA 40 MG TABLET (FP) ONE (21:14)
[2025-05-12] MEDS ORDERED: ATORVASTATIN CA 40 MG TABLET (FP) ONE (18:31)
[2025-05-12] MEDS: SUVOREXANT 10 MG TABLET PO SCH (21:24)
[2025-05-13] MEDS ORDERED: ATORVASTATIN CA 40 MG TABLET (FP) ONE (18:30)
[2025-05-14 05:47] VITALS: PULSE 65; TEMP 97.7
[2025-05-14 09:07] VITALS: BP 113/61
== END 2025-05-14 13:15 | disposition home or self-care (01) | DRG 772 ==
LOC: YASAS 18:44 → Y3NR 20:05 → Y3W 04-23 09:54 → Y5N 04-29 15:26 → Y3W 04-29 15:28
PROVIDERS: ADMIT Neuromusculoskeletal Medicine & OMM; ATTEND Psychiatry & Neurology Pain Medicine
PROC: HZ42ZZZ Group Counseling for Substance Abuse Treatment, Cognitive-Behavioral (ICD-10-PCS; principal; 2025-04-20)
DX: F11.20 Opioid dependence, uncomplicated (principal); F14.20 Cocaine dependence, uncomplicated; F10.20 Alcohol dependence, uncomplicated; F19.282 Other psychoactive substance dependence with psychoactive substance-induced sleep disorder; F10.280 Alcohol dependence with alcohol-induced anxiety disorder; I25.10 Atherosclerotic heart disease of native coronary artery without angina pectoris; I10 Essential (primary) hypertension; Z95.5 Presence of coronary angioplasty implant and graft; N39.0 Urinary tract infection, site not specified; N20.0 Calculus of kidney; K42.9 Umbilical hernia without obstruction or gangrene
CPT/HCPCS: 36415; 80053; 80305; 80307; 85027; 87637-QW; 93005; 93010